=== PATIENT | male | born 1980 | race Caucasian/White ===

== ENCOUNTER 2022-12-15 07:08 | Inpatient (IN) | payer MEDICAID, OTHER ==
[~2022-12-15] VITALS: Ht 182.9 cm; Wt 99.0 kg
[2022-12-15 07:33] LABS: Basophils # (auto) 0.2 10 ^3/uL (0-0.2); Basophils % (auto) 1.4 % (0.0-2.0); Eosinophils # (auto) 0.9 10 ^3/uL (0-0.8); Eosinophils % (auto) 7.6 % (0.0-7.0); Hematocrit 48.2 % (41.0-53.0); Hemoglobin 16.1 g/dL (13.5-17.5); Lymphocytes # (auto) 2.8 10 ^3/uL (0.4-5.4); Lymphocytes % (auto) 24.3 % (10.0-50.0); Mean Corpuscular Hgb Conc. 33.4 g/dL (32.0-36.0); Mean Corpuscular Volume 92.7 fL (80.0-100.0); Monocytes # (auto) 1.6 10 ^3/uL (0-1.3); Monocytes % (auto) 13.6 % (0.0-12.0); Neutrophils # (auto) 6.1 10 ^3/uL (1.6-8.6); Neutrophils % (auto) 53.1 % (37.0-80.0); Nucleated Red Blood Cells % 0.1 %; Red Cell Distribution Width 12.5 % (11.8-14.3); White Blood Cell 11.4 10^3/uL (4.4-10.8)
[2022-12-15] MEDS ORDERED: methylPREDNISolone SOD SUCC 125 MG/2 ML VL IV ONE (07:45)
[2022-12-15] MEDS ORDERED: ONDANSETRON HCL 4 MG/2 ML VIAL IV ONE (07:45)
[2022-12-15] MEDS ORDERED: MORPHINE SULFATE 4 MG/ML SYR/VIAL IV ONE (07:45)
[2022-12-15 07:52] LABS: BUN/Creatinine Ratio 16.5; Calcium 9.5 mg/dL (8.5-10.1); Potassium 4.3 mmol/L (3.5-5.1)
[2022-12-15 07:55] LABS: Albumin 3.4 g/dL (3.4-5.0); Bilirubin, Total 0.5 mg/dL (0.2-1.0); Total Protein 7.7 g/dL (6.4-8.2)
[2022-12-15 08:47] LABS: Urine Bacteria NONE SEEN /hpf (None Seen); Urine Blood Negative /uL (Negative); Urine Mucus FEW (None Seen); Urine Specific Gravity 1.033 (1.001-1.035); Urine WBC 2 /hpf (0 - 3)
[2022-12-15] MEDS ORDERED: ENOXAPARIN SOD 100 MG/1 ML SYRINGE SC ONE (09:15)
[2022-12-15] MEDS ORDERED: MORPHINE SULFATE INJ 2 MG/ml SYRG IV PRN (10:30)
[2022-12-15] MEDS ORDERED: ACETAMINOPHEN 325 MG TAB PO PRN (10:30)
[2022-12-15] MEDS ORDERED: NITROGLYCERIN 0.4 MG SL TAB SL PRN (10:30)
[2022-12-15] MEDS ORDERED: FUROSEMIDE 20 MG/2 ML VIAL IV ONE (11:00)
[2022-12-15] MEDS ORDERED: CARVEDILOL 12.5 MG TAB PO ONE (11:15)
[2022-12-15 11:23] LABS: Cholesterol 175 mg/dL (< 200)
[2022-12-15 11:25] LABS: HDL Cholesterol 52 mg/dL (40-59); LDL Cholesterol 112 mg/dL (< 100); Triglycerides 137 mg/dL (< 150)
[2022-12-15] MEDS ORDERED: ALBUTEROL SULF 2.5 MG/0.5ML(0.5%) NEB SOLN NEB PRN (11:30)
[2022-12-15 12:06] LABS: Amphetamine Screen, Urine NEGATIVE (NEGATIVE); Barbiturate Scree,Urine NEGATIVE (NEGATIVE); Cannabinoid Screen, Urine POSITIVE (NEGATIVE)
[2022-12-15 12:13] LABS: Benzodiazephine Screen, Urine NEGATIVE (NEGATIVE); Cocaine Screen, Urine NEGATIVE (NEGATIVE); Opiate Scree,Urine POSITIVE (NEGATIVE); Phencyclidine Screen, Urine NEGATIVE (NEGATIVE)
[2022-12-15 12:29] VITALS: BP 131/78
[2022-12-15] MEDS: MORPHINE SULFATE INJ 2 MG/ml SYRG IV PRN ×3 (13:04→20:49)
[2022-12-15 15:00] LABS: INR 1.02 (0.9-1.15)
[2022-12-15] MEDS: ATORVASTATIN 20 MG TAB PO SCH (21:18)
[2022-12-15] MEDS: CARVEDILOL 12.5 MG TAB PO SCH (21:18)
[2022-12-16] MEDS: MORPHINE SULFATE INJ 2 MG/ml SYRG IV PRN ×4 (01:40→19:59)
[2022-12-16 06:10] LABS: Basophils # (auto) 0 10 ^3/uL (0-0.2); Basophils % (auto) 0.1 % (0.0-2.0); Eosinophils # (auto) 0 10 ^3/uL (0-0.8); Hemoglobin 14.9 g/dL (13.5-17.5); Lymphocytes # (auto) 1.3 10 ^3/uL (0.4-5.4); Lymphocytes % (auto) 5.6 % (10.0-50.0); Mean Corpuscular Hemoglobin 30.8 pg (28.0-32.0); Mean Corpuscular Hgb Conc. 33.1 g/dL (32.0-36.0); Mean Corpuscular Volume 93.3 fL (80.0-100.0); Monocytes # (auto) 2.1 10 ^3/uL (0-1.3); Monocytes % (auto) 9.2 % (0.0-12.0); Neutrophils # (auto) 19.1 10 ^3/uL (1.6-8.6); Neutrophils % (auto) 85.1 % (37.0-80.0); Nucleated Red Blood Cells % 0.1 %; Red Blood Cells 4.82 10^6/uL (4.5-5.90); Red Cell Distribution Width 12.4 % (11.8-14.3); White Blood Cell 22.5 10^3/uL (4.4-10.8)
[2022-12-16 06:36] LABS: Potassium 4.3 mmol/L (3.5-5.1)
[2022-12-16 06:51] LABS: Albumin 3.1 g/dL (3.4-5.0); BUN/Creatinine Ratio 25.8; Bilirubin, Total 0.5 mg/dL (0.2-1.0); Total Protein 7.5 g/dL (6.4-8.2)
[2022-12-16] MEDS: ENOXAPARIN SOD 40 MG/0.4 ML SYRINGE SC SCH (07:43)
[2022-12-16] MEDS: FUROSEMIDE 20 MG/2 ML VIAL IV SCH (10:52)
[2022-12-16] MEDS: ASPirin 81 mg TAB PO SCH (10:52)
[2022-12-16] MEDS: CARVEDILOL 12.5 MG TAB PO SCH ×2 (10:53→21:31)
[2022-12-16 12:55] VITALS: BP 119/86
[2022-12-16 17:45] VITALS: BP 119/86
[2022-12-16 20:00] VITALS: BP 138/58
[2022-12-16] MEDS: ATORVASTATIN 20 MG TAB PO SCH (21:31)
[2022-12-16 22:00] VITALS: BP 122/71
[2022-12-17] MEDS: MORPHINE SULFATE INJ 2 MG/ml SYRG IV PRN ×2 (01:35→06:32)
[2022-12-17 05:00] VITALS: BP 105/65
[2022-12-17] MEDS ORDERED: ALBUTEROL MEDNEB 2.5 mg/3ml NEB ONE (07:03)
[2022-12-17 09:00] VITALS: BP 120/64
[2022-12-17] MEDS: FUROSEMIDE 20 MG/2 ML VIAL IV SCH (09:31)
[2022-12-17] MEDS: CARVEDILOL 12.5 MG TAB PO SCH ×2 (09:32→22:04)
[2022-12-17] MEDS: HYDROcodone-ACET 5/325MG TAB PO PRN ×2 (09:38→22:03)
[2022-12-17] MEDS: methylPREDNISolone SOD SUCC 40 MG/ML VL IV SCH ×2 (10:00→22:02)
[2022-12-17] MEDS: AZITHROMYCIN 500MG/ 250ML 250 ML IV SCH (10:00)
[2022-12-17] MEDS ORDERED: methylPREDNISolone SOD SUCC 40 MG/ML VL IV ONE (10:00)
[2022-12-17] MEDS: ENOXAPARIN SOD 40 MG/0.4 ML SYRINGE SC SCH (10:00)
[2022-12-17] MEDS: ASPirin 81 mg TAB PO SCH (10:00)
[2022-12-17] MEDS ORDERED: AZITHROMYCIN 500MG/ 250ML 250 ML IV ONE (10:00)
[2022-12-17] MEDS ORDERED: IBUPROFEN 400 MG TAB PO ONE (11:00)
[2022-12-17 13:00] VITALS: BP 113/67
[2022-12-17 17:41] VITALS: BP 112/72
[2022-12-17 22:00] VITALS: BP 127/74
[2022-12-17] MEDS: ATORVASTATIN 20 MG TAB PO SCH (22:02)
[2022-12-18 06:31] LABS: INR 1.04 (0.9-1.15); Partial Thromboplastin Time 35.4 sec (24.6-33.4)
[2022-12-18 06:33] LABS: BUN/Creatinine Ratio 22.5; Calcium 9.1 mg/dL (8.5-10.1); Potassium 4.6 mmol/L (3.5-5.1)
[2022-12-18 06:38] LABS: Basophils # (auto) 0 10 ^3/uL (0-0.2); Basophils % (auto) 0.3 % (0.0-2.0); Eosinophils # (auto) 0 10 ^3/uL (0-0.8); Hematocrit 46.1 % (41.0-53.0); Hemoglobin 15.1 g/dL (13.5-17.5); Lymphocytes % (auto) 5.9 % (10.0-50.0); Mean Corpuscular Hemoglobin 30.8 pg (28.0-32.0); Mean Corpuscular Hgb Conc. 32.8 g/dL (32.0-36.0); Mean Corpuscular Volume 93.9 fL (80.0-100.0); Monocytes # (auto) 1.3 10 ^3/uL (0-1.3); Monocytes % (auto) 7.8 % (0.0-12.0); Neutrophils # (auto) 14.8 10 ^3/uL (1.6-8.6); Red Blood Cells 4.91 10^6/uL (4.5-5.90); Red Cell Distribution Width 12.2 % (11.8-14.3); White Blood Cell 17.2 10^3/uL (4.4-10.8)
[2022-12-18 09:00] VITALS: BP 117/70
[2022-12-18] MEDS: FUROSEMIDE 20 MG/2 ML VIAL IV SCH (09:22)
[2022-12-18] MEDS: methylPREDNISolone SOD SUCC 40 MG/ML VL IV SCH ×2 (09:22→21:42)
[2022-12-18] MEDS: ASPirin 81 mg TAB PO SCH (09:23)
[2022-12-18] MEDS: AZITHROMYCIN 500MG/ 250ML 250 ML IV SCH (09:23)
[2022-12-18] MEDS: CARVEDILOL 12.5 MG TAB PO SCH ×2 (09:24→21:45)
[2022-12-18] MEDS: ENOXAPARIN SOD 40 MG/0.4 ML SYRINGE SC SCH (09:24)
[2022-12-18 13:00] VITALS: BP 107/74
[2022-12-18 13:42] VITALS: BP 117/70
[2022-12-18 17:00] VITALS: BP 134/92
[2022-12-18] MEDS: IBUPROFEN 400 MG TAB PO PRN (21:47)
[2022-12-18 22:00] VITALS: BP 128/68
[2022-12-18] MEDS: ATORVASTATIN 20 MG TAB PO SCH (22:00)
[2022-12-19 05:00] VITALS: BP 127/80
[2022-12-19] MEDS: AZITHROMYCIN 500MG/ 250ML 250 ML IV SCH (08:43)
[2022-12-19] MEDS: ASPirin 81 mg TAB PO SCH (08:43)
[2022-12-19] MEDS: methylPREDNISolone SOD SUCC 40 MG/ML VL IV SCH ×2 (08:43→22:08)
[2022-12-19] MEDS: FUROSEMIDE 20 MG/2 ML VIAL IV SCH (08:43)
[2022-12-19] MEDS: CARVEDILOL 12.5 MG TAB PO SCH ×2 (08:44→22:09)
[2022-12-19] MEDS: ENOXAPARIN SOD 40 MG/0.4 ML SYRINGE SC SCH (08:44)
[2022-12-19 09:38] VITALS: BP 108/56
[2022-12-19 12:52] VITALS: BP 122/74
[2022-12-19 16:36] VITALS: BP 118/72
[2022-12-19 22:00] VITALS: BP 143/79
[2022-12-19] MEDS: IBUPROFEN 400 MG TAB PO PRN (22:08)
[2022-12-19] MEDS: ATORVASTATIN 20 MG TAB PO SCH (22:08)
[2022-12-20 05:00] VITALS: BP 135/88
[2022-12-20] MEDS: ENOXAPARIN SOD 40 MG/0.4 ML SYRINGE SC SCH (09:14)
[2022-12-20] MEDS: ASPirin 81 mg TAB PO SCH (09:14)
[2022-12-20] MEDS: FUROSEMIDE 20 MG/2 ML VIAL IV SCH (09:18)
[2022-12-20] MEDS: methylPREDNISolone SOD SUCC 40 MG/ML VL IV SCH ×2 (09:19→21:55)
[2022-12-20] MEDS: AZITHROMYCIN 500MG/ 250ML 250 ML IV SCH (09:19)
[2022-12-20] MEDS: CARVEDILOL 12.5 MG TAB PO SCH ×2 (09:20→21:56)
[2022-12-20 10:00] VITALS: BP 114/67
[2022-12-20 10:11] VITALS: BP 127/81
[2022-12-20 14:34] LABS: Hematocrit 45.6 % (41.0-53.0); Hemoglobin 15.3 g/dL (13.5-17.5); Mean Corpuscular Hgb Conc. 33.5 g/dL (32.0-36.0); Mean Corpuscular Volume 92.8 fL (80.0-100.0); Red Blood Cells 4.91 10^6/uL (4.5-5.90); Red Cell Distribution Width 12.6 % (11.8-14.3); White Blood Cell 17.8 10^3/uL (4.4-10.8)
[2022-12-20 14:43] LABS: Basophils % (manual) 0 (0.0-2.0); Blast Cells 0; Eosinophils % (manual) 0 (0-7); Metamyelocytes % 0; Myelocytes % 0; Promyelocytes % 0; Reactive Lymphocytes 0
[2022-12-20 15:10] LABS: Band Neutrophils % (manual) 5; Lymphocytes % (manual) 7 (10.0-50.0); Monocytes % (manual) 7 (0-12)
[2022-12-20] MEDS: ATORVASTATIN 20 MG TAB PO SCH (21:55)
[2022-12-20 22:00] VITALS: BP 115/63
[2022-12-20] MEDS: IBUPROFEN 400 MG TAB PO PRN (22:00)
[2022-12-21] VITALS (8 sets, daily range): BP systolic 112–129; BP diastolic 65–83
[2022-12-21 06:25] LABS: Basophils # (auto) 0 10 ^3/uL (0-0.2); Basophils % (auto) 0.1 % (0.0-2.0); Eosinophils # (auto) 0 10 ^3/uL (0-0.8); Hemoglobin 14.9 g/dL (13.5-17.5); Lymphocytes # (auto) 1.7 10 ^3/uL (0.4-5.4); Lymphocytes % (auto) 9.6 % (10.0-50.0); Mean Corpuscular Hemoglobin 30.8 pg (28.0-32.0); Mean Corpuscular Hgb Conc. 33.1 g/dL (32.0-36.0); Mean Corpuscular Volume 93.2 fL (80.0-100.0); Monocytes % (auto) 11.4 % (0.0-12.0); Neutrophils # (auto) 13.6 10 ^3/uL (1.6-8.6); Neutrophils % (auto) 78.9 % (37.0-80.0); Nucleated Red Blood Cells % 0.1 %; Red Blood Cells 4.83 10^6/uL (4.5-5.90); Red Cell Distribution Width 12.5 % (11.8-14.3); White Blood Cell 17.2 10^3/uL (4.4-10.8)
[2022-12-21] MEDS: ENOXAPARIN SOD 40 MG/0.4 ML SYRINGE SC SCH (09:32)
[2022-12-21] MEDS: FUROSEMIDE 20 MG/2 ML VIAL IV SCH (09:32)
[2022-12-21] MEDS: methylPREDNISolone SOD SUCC 40 MG/ML VL IV SCH ×2 (09:33→21:41)
[2022-12-21] MEDS: ASPirin 81 mg TAB PO SCH (09:33)
[2022-12-21] MEDS: CARVEDILOL 12.5 MG TAB PO SCH ×2 (09:33→21:42)
[2022-12-21] MEDS: AZITHROMYCIN 500MG/ 250ML 250 ML IV SCH (09:33)
[2022-12-21] MEDS: IBUPROFEN 400 MG TAB PO PRN ×2 (09:33→21:52)
[2022-12-21] MEDS: ATORVASTATIN 20 MG TAB PO SCH (21:42)
[2022-12-22 05:00] VITALS: BP 120/73
[2022-12-22 07:45] VITALS: BP 115/62
[2022-12-22 08:00] VITALS: BP 115/62
[2022-12-22] MEDS: ENOXAPARIN SOD 40 MG/0.4 ML SYRINGE SC SCH (10:00)
[2022-12-22] MEDS: AZITHROMYCIN 500MG/ 250ML 250 ML IV SCH (10:09)
[2022-12-22] MEDS: methylPREDNISolone SOD SUCC 40 MG/ML VL IV SCH ×2 (10:09→22:44)
[2022-12-22] MEDS: ASPirin 81 mg TAB PO SCH (10:09)
[2022-12-22] MEDS: CARVEDILOL 12.5 MG TAB PO SCH ×2 (10:10→22:45)
[2022-12-22] MEDS: FUROSEMIDE 20 MG/2 ML VIAL IV SCH (10:10)
[2022-12-22] MEDS: IBUPROFEN 400 MG TAB PO PRN ×2 (10:15→22:46)
[2022-12-22 12:00] VITALS: BP 94/64
[2022-12-22] MEDS ORDERED: PRED20TA2 PO (13:04)
[2022-12-22 16:00] VITALS: BP 124/78
[2022-12-22 22:00] VITALS: BP 121/78
[2022-12-22] MEDS: ATORVASTATIN 20 MG TAB PO SCH (22:45)
[2022-12-23 05:00] VITALS: BP 124/73
[2022-12-23 08:00] VITALS: BP 118/68
[2022-12-23 08:50] VITALS: BP 118/68
[2022-12-23] MEDS ORDERED: MIDAZOLAM HCL 2MG/2ML 2ml VIAL (1mg/ml) IV ONE (09:00)
[2022-12-23] MEDS ORDERED: fentaNYL CITRATE 100 MCG/2 ML VL IV ONE (09:00)
[2022-12-23] MEDS: FUROSEMIDE 20 MG/2 ML VIAL IV SCH ×2 (10:00→10:25)
[2022-12-23] MEDS: ENOXAPARIN SOD 40 MG/0.4 ML SYRINGE SC SCH (10:00)
[2022-12-23] MEDS: AZITHROMYCIN 500MG/ 250ML 250 ML IV SCH ×2 (10:00→10:25)
[2022-12-23] MEDS: methylPREDNISolone SOD SUCC 40 MG/ML VL IV SCH ×2 (10:00→10:25)
[2022-12-23] MEDS: ASPirin 81 mg TAB PO SCH (10:25)
[2022-12-23] MEDS: CARVEDILOL 12.5 MG TAB PO SCH (10:26)
[2022-12-23] MEDS ORDERED: AMOX500T86 PO (10:45)
[2022-12-23 11:13] VITALS: BP 136/88
[2022-12-23 12:02] VITALS: BP 120/70
[2022-12-24] MEDS ORDERED: LEVO750T64 PO (15:02)
[2022-12-26] MEDS ORDERED: PRED20TA2 PO ×3 (09:44→09:46)
== END 2022-12-23 12:40 | disposition home or self-care (01) | DRG 194 ==
LOC: ER 07:08 → TELE 10:54 → TELE-E-ADS 12-16 11:42 → TELE-EAST 12-16 17:35
PROVIDERS: ADMIT Registered Nurse; ATTEND Internal Medicine Pulmonary Disease
PROC: 0W9B3ZZ Drainage of Left Pleural Cavity, Percutaneous Approach (ICD-10-PCS; principal; 2022-12-16)
PROC: 0W9B3ZZ Drainage of Left Pleural Cavity, Percutaneous Approach (ICD-10-PCS; 2022-12-23)
DX: J90 Pleural effusion, not elsewhere classified (principal); I50.9 Heart failure, unspecified; J96.01 Acute respiratory failure with hypoxia; I31.39 Other pericardial effusion (noninflammatory); I24.9 Acute ischemic heart disease, unspecified; I51.4 Myocarditis, unspecified; R91.8 Other nonspecific abnormal finding of lung field; F17.210 Nicotine dependence, cigarettes, uncomplicated; Z20.822 Contact with and (suspected) exposure to COVID-19; F12.90 Cannabis use, unspecified, uncomplicated; R79.89 Other specified abnormal findings of blood chemistry; D72.829 Elevated white blood cell count, unspecified; Z85.118 Personal history of other malignant neoplasm of bronchus and lung; Z80.1 Family history of malignant neoplasm of trachea, bronchus and lung; Z82.49 Family history of ischemic heart disease and other diseases of the circulatory system; Z80.3 Family history of malignant neoplasm of breast; Z71.6 Tobacco abuse counseling; J45.901 Unspecified asthma with (acute) exacerbation
CPT/HCPCS: 10005; 36415; 71045; 71046; 71250; 71275; 76604; 76942; 77012; 80048; 80053; 80061; 80307; 81001; 83036; 83986; 84132; 84443; 84484; 85007; 85025; 85027; 85379; 85610; 85730; 87070; 87086; 87205; 87426; 89051; 93005; 93306; 93970; 94640; 96372; 96374; 96375; A4223; G0378; J2250; J2405